=== PATIENT | male | born 1950 | race Caucasian/White ===

== ENCOUNTER 2025-03-27 08:49 | Outpatient (CLI) | payer MEDICARE, SELFPAY ==
--- OUTSIDE RECORDS SUMMARY | 2014-02-02 03:40 | XMS_ITS | Continuity of Care Document ---
Author Organization [facility] Address [address] [place] [address] Phone Care Team Providers Care Casting Machine Adjuster Name Role Phone Amanda Aguilar PA-C Unavailable Unavailable Allergies, Adverse Reactions, Alerts Substance Reaction Status Criticality Tetanus Vaccines and Toxoid Fever Active No Information Medications Medication Instructions Dosage Effective Dates (start - stop) Status Comments meloxicam 15 mg tablet take 1 tablet (15MG) by oral route every day with food - Active METOPROLOL SUCCINATE (unknown strength) Not Available - Active AMLODIPINE BESYLATE (unknown strength) Not Available - Active LISINOPRIL (unknown strength) Not Available - Active ASPIRIN (unknown strength) Not Available - Active meloxicam 15 mg tablet take 1 tablet (15MG) by oral route every day with food - No Longer Active Procedures Procedure Date OFFICE/OUTPATIENT VISIT EST OFFICE CONSULTATION Advance Directives Directive Yes / No Effective Date File Name No Information Encounters Encounter Description Practice Location Reason(s) For Visit Diagnoses Date Provider Providers Copied on Encounter OFFICE/OUTPATI ENT VISIT EST [facility] , [address], [place], [address], [place] tel:[phone] [facility] Follow Up of Right shoulder (chief complaint) Disorder of bursae and tendons in shoulder region Jeff Patel. [address], [place], [place], [id number] . tel: [phone] OFFICE CONSULTATION [facility] , [address], [place], [address], [place] tel:[phone] [facility] Disorder of bursae and tendons in shoulder region Jeff Patel. [address], [place], [place], [address] . tel: [phone] Referring Provider: Arely Zelaya, [address], [place], [address]. tel:[phone] Family History Family Member Type Diagnosis Age At Onset Problem (finding) Family history of prost ate cancer Payers Payer name Insurance type Covered green party ID Authoriza tion(s) No Information Social History Type Description Quantity Date Captured Comments Sex Male Smoking Status No Information Chief Complaint And Reason For Visit From encounter dated '02/02/2014 09:40'. Follow Up of Right shoulder (chief complaint) Reason For Referral Reason For Referral No Information Plan Of Treatment Date Type Action Status Referral Ordered: RADEX ACROMCLAV JTS BI +-[id number] DISTRCJ ordered Referral Ordered: RADEX LAURA COMPL MINIMUM 2 VIEWS RT ordered History Of Present Illness Encounter Date Complaint History Of Prese nt Illness Follow Up of Right shoulder Functional Status Date Functional Assessmen t No Information Instructions Date Instruction Additional Infor mation No Information Assessments Type Assessment Date assessment Disorder of bursae and tendons i n shoulder region Patient Care Teams Name Effective Dates (start - stop) Status Members No Information
--- OUTSIDE RECORDS SUMMARY | 2025-03-27 09:34 | XMS_ITS | Clinical Summary ---
Author Organization [facility] Address [address] [place] [id number] Care Team Providers Care Bullet Assembly Press Operator Name Role Phone Aiden Lacey MD Primary Care Provider [phone] Allergies Active Allergy Reactions Criticality Noted Date Comments Tetanus Vaccines And Toxoid Fever Medium 10/31/19 14 Medications lisinopril (PRINIVIL,ZESTRI L) 40 mg tabletIndication s:hypertension Take 40 mg by mouth every morning 9 Active amLODIPine (NORVASC) 10 mg tabletIndication s:hypertension Take 10 mg by mouth every morning 9 Active metoprolol (LOPRESSOR) 50 mg tabletIndication s:hypertension Take 50 mg by mouth 2 (two) times a day 9 Active tadalafil (CIALIS) 20 mg tabletIndication s:Erectile Dysfunction Take 20 mg by mouth daily as needed for erectile dysfunction Active multivitamin capsule Take 1 capsule by mouth nightly Active oxyCODONE (ROXICODONE) 5 mg immediate release tabletIndication s:Pain Take 1 tablet (5 mg total) by mouth every 4 (four) hours as needed for pain 42 tablet [address] (VOLTAREN) 75 mg EC tabletIndication s:pain HOLD UNTIL FOLLOW UP 9 Active traMADol (ULTRAM) 50 mg tabletIndication s:Pain DO NOT TAKE WITH OXYCODONE 9 Active Additional Information Patient not taking.Reported on 05/22/2019 cyclobenzaprine (FLEXERIL) 10 mg tablet Take 1 tablet (10 mg total) by mouth every 8 (eight) hours as needed for muscle spasms 90 tablet 1 9 Active senna-docusate (PERICOLACE) 8.6-50 mgIndications:co nstipation Take 2 tablets by mouth 2 (two) times a day 60 tablet 9 Active acetaminophen 500 mg capsule Take 2 capsules (1,000 mg total) by mouth every 6 (six) hours 30 tablet 9 Active Active Problems Problem Noted Date Diagnosed Date Cervical myelopathy 04/23/2019 Myelopathy 04/23/2019 Overview (04/23/2019): Added automatically from request for surgery [id number] Immunizations Immunization Administration Dates Next Due Influenza, Trivalent, High D ose, Split, Preservative Free, Intramuscular 03/07/2019 Influenza, Trivalent, IM (MDV) 06/02/2013 Influenza, Trivalent, Preser vative Free, Intramuscular 04/05/2017,01/09/2016,03/11/2015 ZOSTER LIVE 02/16/2017 Surgical History Surgery Date Site/Laterality Comments NASAL FRACTURE SURGERY 05/21/1971 - 05/20/1972 THORACIC DISC SURGERY 05/21/1991 - 05/20/1992 COLONOSCOPY Medical History Medical History Date Comments HTN (hypertension) DIOMEDE (hard of hearing) Social History Tobacco Use Types Packs/Day Years Used Date Smoking Tobacco: Former Cigarettes 1 44 1 972 - 2016 Smokeless Tobacco: Current Tobacco Cessation:Counseling Given: Yes Comments:nicotine gum Alcohol Use Standard Drinks/Week Comments Yes 7 (1 standard drink = 0.6 oz pur e alcohol) Sex and Gender Information Value Date Recorded Sex Assigned at Not on file Legal Sex Male 9:29 AM COAT PADDER Gender Identity Not on file Sexual Orientation Not on file Last Filed Vital Signs Vital Sign Reading Time Taken Comments Blood Pressure 142/76 05/22/2019 10:46 AM COAT PADDER Pulse 64 05/22/2019 10:46 AM COAT PADDER Temperature 36.4 C (97.5 F) 05/04/2019 9:10 AM COAT PADDER Respiratory Rate 18 05/04/2019 9:10 AM COAT PADDER Oxygen Saturation 99% 05/04/2019 9:10 AM COAT PADDER Inhaled Oxygen Concentration - - Weight 89.3 kg (196 lb 12.8 oz) 020 10:46 AM COAT PADDER Height 188 cm (6' 2) 05/22/2019 10:46 AM COAT PADDER Body Mass Index 25.27 05/22/2019 10:46 AM COAT PADDER Plan of Treatment Not on file Medical Devices Implanted Type Area Statistical Machine Servicer Device Identifier Shelf Expiration Date Model / Serial / Lot Abyrx Os-201 Hemasorb Os-Spa Spatula Wax 2gm Bone Sterile - [id number] Implanted:Qty: 1 on 05/02/2019 by Frandy Schneider MD at [facility] N/A: Spine Cervical Abyrx 12/18/2021 OS-201 / / Mag Spine [id number] Virage 3.5mm 14mm Polyaxial Spine Screw Bone Nonsterile - [id number] Implanted:Qty: 10 on 05/02/2019 by Frandy Schneider MD at [facility] N/A: Spine Cervical Mag [employer] [id number] / / Mag Spine [id number] Virage Closure Top Lid Sterilization Nonsterile Disposable Screw - [id number] Implanted:Qty: 10 on 05/02/2019 by Frandy Schneider MD at [facility] N/A: Spine Cervical Mag [employer] [id number] / / Mag Spine [id number] Virage 3.5mm 70mm Claudio Spinal Titanium Nonsterile - [id number] Implanted:Qty: 2 on 05/02/2019 by Frandy Schneider MD at [facility] N/A: Spine Cervical Mag [employer] [id number]. [id number] / / Insurance MEDICARE [facility] Member Subscriber Plan / Payer (Ef fective 2018-Present) Name:Luisito Nichols Relation to Subscriber:Self Name:Luisito Nichols Payer ID:[id number] Group ID:Not on file Type:COMMERCIAL Address[facility] [address] [place] [phone] MEDICARE [facility] Advance Directives For more information, please contact: [phone] Documents on File Type Date Recorded Patient Matcher [employer] Expl anation ADVANCE DIRECTIVE 05/02/2019 8:00 AM Shelley arriaga of Core Machine Operator-Medical * Full Code (Latest Code Status on File) Date Activated Date Inactivated Comments 05/02/2019 2:34 PM 05/04/2019 2:31 PM Care Teams Bullet Assembly Press Operator Relationship Specialty [place] [address] [place], [place] [address] [address] PCP - General Family Medicine 04/15/19
--- OUTSIDE RECORDS SUMMARY | 2025-03-27 09:34 | XMS_ITS | Clinical Summary ---
Author Organization [facility] Address [address] [place] [address] Care Team Providers Care Water Server Name Role Phone Konstantin Lacey MD Primary Care Provider [phone] Allergies Active Allergy Reactions Criticality Noted Date Comments Tetanus Toxoid-Containing Vaccines Unknown 0 09/04/2022 Social History Tobacco Use Types Packs/Day Years Used Date Smoking Tobacco: Never Assessed Sex and Gender Information Value Date Recorded Sex Assigned at Not on file Legal Sex Male 9:27 AM CDT Gender Identity Not on file Sexual Orientation Not on file Last Filed Vital Signs Vital Sign Reading Time Taken Comments Blood Pressure - - Pulse - - Temperature - - Respiratory Rate - - Oxygen Saturation - - Inhaled Oxygen Concentration - - Weight 81.6 kg (180 lb) 09/04/2022 12:00 PM CDT Height 185.4 cm (6' 1) 09/04/2022 12:00 PM CDT Body Mass Index 23.75 09/04/2022 12:00 PM CDT Plan of Treatment Upcoming Encounters Date Type Department Care Team (Late st Contact Info) Description 04/03/2025 2:00 PM AQUATICS MANAGER Appointment [facility] [address] [place] [address] Konstantin Lacey MD [address] [place] [phone] Health Maintenance Due Date Last Done Comments Colorectal Cancer Screening Colonoscopy (10 Years) 1952 Hepatitis C 1970 DTaP, Tdap and Td Vaccines (1 - Tdap) 1971 Zoster Vaccines (2 of 3) 04/13/2017 02/16/2017 Annual Medicare Wellness Visit 2017 Pneumococcal Vaccine: 50+ Years (2 of 2 - PCV) 03/21/2022 03/21/2021 COVID-19 Vaccine (4 - season) 2025 03/01/2021, 07/27/2020, 06/29/2020 Influenza Adult (#1) 2025 03/12/2020, 03/07/2019, 04/05/2017, Additional history exists RSV Immunization or 60+ Years (1 - 1-dose 75+ series) 2027 Hepatitis A Vaccines Aged Out No long er eligible based on patient's age to complete this topic Meningococcal B Vaccine Aged Out No l onger eligible based on patient's age to complete this topic Meningococcal Vaccine Aged Out No jonah gerardo eligible based on patient's age to complete this topic RSV Immunizations Under 20 Months Aged Out No longer eligible based on patient's age to complete this topic Insurance MEDICARE [facility] Care Teams Water Server Relationship Specialty Start Date End Date Konstantin Lacey MD [address] [place] [address] PCP - General FAMILY PRACTICE 12/16/21
[2025-03-27 09:53] LABS: Alanine Aminotransferase 21 U/L (6-50); Albumin Level 4.2 g/dL (3.5-5.1); Alkaline Phosphatase 114 U/L (38-126); Anion Gap 4 mmol/L (4-12); Aspartate Amino Transferase 28 U/L (17-59); Bilirubin,Total 1.2 mg/dL (0.2-1.3); Blood Urea Nitrogen 9 mg/dL (9-20); Calcium 9.4 mg/dL (8.4-10.2); Carbon Dioxide 32 mmol/L (22-30); Chloride 95 mmol/L (98-107); Cholesterol 147 mg/dL (0-200); Estimated Glomerular Filt Rate > 60; Glucose 88 mg/dL (65-110); HDL Direct 73 mg/dL; Osmolality Calculated 269 mOsm/kg (285-295); Potassium 5.0 mmol/L (3.4-5.0); Sodium 131 mmol/L (137-145); Total Protein 6.3 g/dL (6.3-8.2); Triglycerides 91 mg/dL (<150)
== END 2025-03-27 08:50 | disposition home or self-care (01) ==
PROVIDERS: PCP Family Medicine; Visit Provider Physician Assistant
DX: I10 Essential (primary) hypertension (principal)
CPT/HCPCS: 36415; 80053; 80061